=== PATIENT | female | born 1980 | race Caucasian/White ===

== ENCOUNTER → 2017-05-19 | Outpatient (REF) | payer BC | LOC: M LAB REF 09:15 | PROVIDERS: ATTEND Physician Assistant Medical | DX: N39.0 Urinary tract infection, site not specified (principal) ==

== ENCOUNTER → 2017-09-16 | Outpatient (REF) | payer BC ==
[2017-09-16 18:17] LABS: APPEARANCE, URINE HAZY (CLEAR); BACTERIA, URINE AUTO 1+ (NEGATIVE); BILIRUBIN, URINE AUTO NEGATIVE (NEGATIVE); BLOOD, URINE BLOOD 2+ (NEGATIVE); CALCIUM OXALATE CRYSTALS SMALL; COLOR, URINE YELLOW (YELLOW); GLUCOSE, URINE (UA) AUTO NEGATIVE (NEGATIVE); KETONE, URINE AUTO 1+ mg/dL (NEGATIVE); LEUKOCYTE ESTERASE, URINE AUTO NEGATIVE (NEGATIVE); MUCUS, URINE SMALL (NEGATIVE); NITRITE, URINE AUTO POSITIVE (NEGATIVE); PROTEIN, URINE AUTO NEGATIVE (NEGATIVE); RBC, URINE AUTO 7 /HPF (0-3); SPECIFIC GRAVITY URINE AUTO 1.021 (1.002-1.035); SQUAMOUS EPITHELIAL CELL UR AU 4 /HPF (0-6); UROBILINOGEN, URINE AUTO 0.2 mg/dL (0.0-2.0); WBC, URINE AUTO 2 /HPF (0-3)
== END ==
LOC: M SFHCPLAZ 17:08
DX: R30.0 Dysuria (principal)
CPT/HCPCS: 81001

== ENCOUNTER → 2019-07-30 | Outpatient (REF) | payer BC | LOC: M SFHCPLAZ 11:17 | PROVIDERS: ATTEND Nurse Practitioner Adult Health | DX: R35.0 Frequency of micturition (principal) ==

== ENCOUNTER → 2019-12-10 | Outpatient (REF) | payer BC ==
[2019-12-10 13:57] LABS: AMORPHOUS SEDIMENT SMALL (NEGATIVE); APPEARANCE, URINE HAZY (CLEAR); BACTERIA, URINE AUTO NEGATIVE (NEGATIVE); BILIRUBIN, URINE AUTO NEGATIVE (NEGATIVE); BLOOD, URINE BLOOD NEGATIVE (NEGATIVE); COLOR, URINE YELLOW (YELLOW); GLUCOSE, URINE (UA) AUTO NEGATIVE (NEGATIVE); KETONE, URINE AUTO NEGATIVE (NEGATIVE); LEUKOCYTE ESTERASE, URINE AUTO NEGATIVE (NEGATIVE); MUCUS, URINE SMALL (NEGATIVE); NITRITE, URINE AUTO NEGATIVE (NEGATIVE); PROTEIN, URINE AUTO NEGATIVE (NEGATIVE); RBC, URINE AUTO 0 /HPF (0-3); SPECIFIC GRAVITY URINE AUTO 1.019 (1.002-1.035); SQUAMOUS EPITHELIAL CELL UR AU 4 /HPF (0-6); WBC, URINE AUTO 2 /HPF (0-3)
[2019-12-10 13:58] LABS: HEMATOCRIT 44.2 % (36.0-47.0); HEMOGLOBIN 14.4 g/dl (12.0-15.5); MEAN CORPUSCULAR HEMOGLOBIN 28.7 pg (27.0-33.0); MEAN CORPUSCULAR HGB CONC 32.6 g/dl (32.0-36.5); PLATELET COUNT, AUTOMATED 323 10^3/uL (150-450); RED BLOOD COUNT 5.02 10^6/uL (4.00-5.40); WHITE BLOOD COUNT 5.6 10^3/uL (4.0-10.0)
[2019-12-10 14:11] LABS: HCG, SERUM QUALITATIVE NEGATIVE (NEGATIVE)
== END ==
LOC: M SFHCPLAZ 10:30
PROVIDERS: ATTEND Physician Assistant
DX: R10.31 Right lower quadrant pain (principal)

== ENCOUNTER → 2019-12-16 | Outpatient (CLI) | payer BC ==
--- NOTE | 2019-12-17 04:40 | REP ---
Clinical: Right lower quadrant pain. Technique: Transabdominal pelvic ultrasound followed by transvaginal examination for better evaluation of the endometrium and adnexa with color Doppler evaluation of the ovaries. Findings: Anteverted uterus measures 7.4 x 3.2 x 3.7 cm. Endometrial complex measures 8 mm thickness. No discrete uterine or endometrial abnormality noted. Ovaries are normal in vascularity without torsion. Right ovary measures 2.2 x 1.1 x 2.1 cm (RI 0.56). Left ovary measures 3.0 x 1.6 x 3.0 cm (RI 0.49) and includes 1.8 cm and 1.6 cm presumed physiologic cysts / dominant follicle. No pelvic fluid or adnexal mass lesion. Impression: 1. Two simple cysts in the left ovary likely physiologic.
== END ==
LOC: M WHC 12:40
PROVIDERS: ATTEND Physician Assistant
DX: R10.31 Right lower quadrant pain (principal); N83.202 Unspecified ovarian cyst, left side

== ENCOUNTER 2020-06-27 15:19 | Outpatient (RCR) | payer BC | END 2020-07-06 | LOC: M OUTALCOH 15:19 | PROVIDERS: ATTEND Psychiatry & Neurology Addiction Medicine | DX: F10.20 Alcohol dependence, uncomplicated (principal) ==

== ENCOUNTER → 2020-06-27 | Outpatient (CLI) | payer BC | LOC: M OUTALCOH 07:58 | PROVIDERS: ATTEND Psychiatry & Neurology Addiction Medicine | DX: F41.9 Anxiety disorder, unspecified (principal) ==

== ENCOUNTER → 2022-02-27 | Outpatient (REF) | payer SELFPAY, BC | LOC: M SFHCPLAZ 16:55 | PROVIDERS: ATTEND Nurse Practitioner Adult Health | DX: R30.0 Dysuria (principal) ==

== ENCOUNTER → 2023-08-29 | Outpatient (CLI) | payer BC ==
[2023-08-29 13:45] LABS: TOTAL 25(OH) VITAMIN D 21.7 NG/ML (20.0-100.0)
[2023-08-29 13:46] LABS: HEMATOCRIT 38.5 % (36.0-47.0); HEMOGLOBIN 12.5 g/dl (12.0-15.5); MEAN CORPUSCULAR HEMOGLOBIN 28.3 pg (27.0-33.0); MEAN CORPUSCULAR HGB CONC 32.5 g/dl (32.0-36.5); MEAN CORPUSCULAR VOLUME 87.1 fl (80.0-96.0); PLATELET COUNT, AUTOMATED 234 10^3/uL (150-450); RED BLOOD COUNT 4.42 10^6/uL (4.00-5.40); THYROID STIMULATING HORMONE 0.721 uIU/ML (0.55-4.78); WHITE BLOOD COUNT 3.8 10^3/uL (4.0-10.0)
[2023-08-29 13:48] LABS: ALBUMIN 3.5 G/DL (3.2-5.2); ALKALINE PHOSPHATASE 63 U/L (46-116); ALT/SGPT 13 U/L (7.0-40); AST/SGOT 13 U/L (<34); BILIRUBIN,TOTAL 0.4 MG/DL (0.3-1.2); BLOOD UREA NITROGEN 12 MG/DL (9-23); CALCIUM LEVEL 8.6 MG/DL (8.5-10.1); CARBON DIOXIDE LEVEL 29 MMOL/L (20-31); CHLORIDE LEVEL 108 MMOL/L (98-107); CHOLESTEROL LEVEL 207 MG/DL (<200); CHOLESTEROL RISK RATIO 2.87 (<5); CREATININE FOR GFR 0.71 MG/DL (0.55-1.30); GLOMERULAR FILTRATION RATE > 60.0 (>58); GLUCOSE, FASTING 87 MG/DL (60-100); HDL CHOLESTEROL 71.9 MG/DL (>40); LDL CHOLESTEROL 120.7 MG/DL (<100); NON-HDL-C 135.1 MG/DL; POTASSIUM SERUM 4.5 MMOL/L (3.5-5.1); SODIUM LEVEL 141 MMOL/L (136-145); TOTAL PROTEIN 5.8 G/DL (5.7-8.2); TRIGLYCERIDES LEVEL 72 MG/DL (<150)
== END ==
LOC: M PLALAB 10:15
PROVIDERS: ATTEND Nurse Practitioner Adult Health
DX: Z00.00 Encounter for general adult medical examination without abnormal findings (principal)

== ENCOUNTER → 2023-09-01 | Outpatient (CLI) | payer BC | LOC: M WUC 09:09 | PROVIDERS: ATTEND Student in an Organized Health Care Education/Training Program | DX: M25.532 Pain in left wrist (principal) ==

== ENCOUNTER → 2024-11-18 | Outpatient (REF) | payer OTHER, SELFPAY ==
[~2024-11-18] MED LIST: QUET1TAB17 PO; VENL150C43 PO
== END ==
LOC: M SFHCLERA 17:32
DX: R35.0 Frequency of micturition (principal)

== ENCOUNTER → 2025-01-28 | Outpatient (CLI) | payer OTHER ==
[2025-01-28 13:32] LABS: PLATELET COUNT, AUTOMATED 217 10^3/uL (150-450)
[2025-01-28 13:57] LABS: ALT/SGPT 9 U/L (7.0-40); AST/SGOT 18 U/L (<34); CALCIUM LEVEL 8.7 MG/DL (8.5-10.1); CARBON DIOXIDE LEVEL 26 MMOL/L (20-31); CHLORIDE LEVEL 104 MMOL/L (98-107); CHOLESTEROL LEVEL 243 MG/DL (<200); CHOLESTEROL RISK RATIO 2.87 (<5); CREATININE FOR GFR 0.75 MG/DL (0.55-1.30); GLOMERULAR FILTRATION RATE > 90.0 (>58); LDL CHOLESTEROL 136.4 MG/DL (<100); NON-HDL-C 158.4 MG/DL; POTASSIUM SERUM 4.1 MMOL/L (3.5-5.1); SODIUM LEVEL 142 MMOL/L (136-145); TRIGLYCERIDES LEVEL 110 MG/DL (<150)
== END ==
LOC: M PLALAB 11:44
PROVIDERS: ATTEND Nurse Practitioner Adult Health
DX: Z00.00 Encounter for general adult medical examination without abnormal findings (principal); Z13.29 Encounter for screening for other suspected endocrine disorder; E55.9 Vitamin D deficiency, unspecified

== ENCOUNTER 2025-03-18 07:25 | Outpatient (CLI) | payer OTHER ==
[~2025-03-18] VITALS: Ht 152.4 cm; Wt 53.0 kg
[~2025-03-18 07:25] MED LIST changes: +ALBUTEROL SULFATE 2.5 MG/0.5 ML INH CONCENTRATE NEB SOLN INH PRN; +EPINEPHrine INJ 1 MG/ML 1ML AMP IM PRN; +diphenhydrAMINE 50 MG/ML VIAL IV PRN
[2025-03-18] MEDS ORDERED: IRON SUCROSE 300 MG in NS 250 ML OVER 90 MIN. IV ONE (07:30)
[2025-03-18 07:41] VITALS: BP 117/71; O2SAT 96
[2025-03-18] MEDS: IRON SUCROSE 300 MG in NS 250 ML OVER 90 MIN. IV ONE (08:00)
[2025-03-18 10:10] VITALS: BP 119/73; O2SAT 99
[2025-03-18] MEDS ORDERED: CIPR250T26 PO (14:33)
== END 2025-03-18 10:10 ==
LOC: M INFU 07:25
PROVIDERS: ATTEND Nurse Practitioner Adult Health
DX: D50.9 Iron deficiency anemia, unspecified (principal); Z88.2 Allergy status to sulfonamides
CPT/HCPCS: 96365; 96366; J1756

== ENCOUNTER 2025-03-18 12:40 | Emergency (ER) | payer OTHER ==
[~2025-03-18] VITALS: Ht 152.4 cm; Wt 50.5 kg
[~2025-03-18 12:40] MED LIST changes: -ALBUTEROL SULFATE 2.5 MG/0.5 ML INH CONCENTRATE NEB SOLN INH PRN; -EPINEPHrine INJ 1 MG/ML 1ML AMP IM PRN; -diphenhydrAMINE 50 MG/ML VIAL IV PRN
[2025-03-18 13:51] LABS: KETONE, URINE MANUAL REFLEX 1+ mg/dL (NEGATIVE); NITRITE, URINE MANUAL RFX NEGATIVE (NEGATIVE); PROTEIN, URINE MANUAL REFLEX 3+ mg/dL (NEGATIVE); SP GRAVITY,URINE MANUAL REFLEX 1.015 (1.002-1.035); UROBILINOGEN, UA MANUAL REFLEX NORMAL (NORMAL)
[2025-03-18 14:13] LABS: SQUAMOUS EPITHELIAL URINE RFX SMALL AMOUNT /hpf (SMALL AMT); TRANSITIONAL EPI, URINE RFX SMALL AMOUNT /hpf; WBC, URINE MAN RFX 15-20 /hpf (0-3)
[2025-03-18 14:14] LABS: MICROSCOPIC EXAM RFX PERFORMED
[2025-03-18] MEDS ORDERED: CIPR250T26 PO (14:33)
[2025-03-18 14:37] VITALS: BP 130/92; TEMP 97; O2SAT 97
== END 2025-03-18 14:41 | disposition home or self-care (01) ==
LOC: M ED 12:40
DX: N39.0 Urinary tract infection, site not specified (principal); D50.9 Iron deficiency anemia, unspecified; Z88.2 Allergy status to sulfonamides; Z79.2 Long term (current) use of antibiotics; Z79.899 Other long term (current) drug therapy
CPT/HCPCS: 81000; 81015; 87086; 96365; 96366; 99283; J1756